=== PATIENT | male | born 1990 ===

== ENCOUNTER 2024-10-07 06:55 | Emergency (ER) | payer BC ==
[~2024-10-07] VITALS: Ht 175.2 cm; Wt 85.3 kg
[2024-10-07] MEDS ORDERED: SERTRALINE HYDR50 MG PO (07:34)
[2024-10-07] MEDS ORDERED: Thiamine 200 MG/2 ML VIAL IV ONE (07:45)
[2024-10-07] MEDS ORDERED: SODIUM CHLORIDE 0.9% 1,000 ML IV ONE (07:45)
[2024-10-07] MEDS ORDERED: LIBRIUM5 MG PO (07:55)
[2024-10-07] MEDS ORDERED: VITAMIN B-1100 M2 PO (07:55)
[2024-10-07 08:17] LABS: BASO % 0.6 % (0.0-1.0); EOS # 0.1 10*3/uL (0.0-0.4); EOS % 1.4 % (1.0-4.0); HEMATOCRIT 48.2 % (42.0-52.0); MEAN CELL VOLUME 88.9 fl (80.0-94.0); MEAN CORPUSCULAR HGB CONC 34.9 g/dl (33.0-37.0); MEAN PLATELET VOLUME 10.9 fl (9.6-12.3); MONO # 0.6 10*3/uL (0.1-1.0); MONO % 11.5 % (3.0-9.0); NEUT # 2.7 10*3/uL (2.3-7.9); NEUT % 54.8 % (47.0-73.0); PLATELET COUNT AUTOMATED 205 10*3/uL (130-400); RED BLOOD COUNT 5.42 10*6/uL (4.50-5.90); RED CELL DISTRI WIDTH 12.2 % (0-14.5); WHITE BLOOD COUNT 4.9 10*3/uL (4.8-10.8)
[2024-10-07 08:32] LABS: ACT PARTIAL THROMBO TIME 29.3 SECONDS (20.0-32.1)
[2024-10-07 08:42] LABS: ALKALINE PHOSPHATASE 78 U/L (46-116); BUN 7 mg/dl (9-23); CHLORIDE 101 mmol/L (98-107); CPK 219 U/L (34-171); LIPASE 39 U/L (12-53); POTASSIUM 3.7 mmol/L (3.4-5.1); SGPT/ALT 54 U/L (5-49); TOTAL PROTEIN 7.5 gm/dL (6.0-8.0)
[2024-10-07 08:46] LABS: ETHYL ALCOHOL < 3.0 mg/dl (<3)
[2024-10-07 08:47] LABS: BILIRUBIN Negative (Negative); BLOOD Negative (Negative); CLARITY Clear (Clear); COLOR Yellow (Yellow); GLUCOSE Negative (Negative); KETONE Negative (Negative); LEUKO ESTERASE Negative (Negative); NITRITE Negative (Negative); SPECIFIC GRAVITY <= 1.005 (1.001-1.030); UROBILINOGEN 0.2 E.U./dl (0.0-1.0)
[2024-10-07 08:52] LABS: URINE AMPHETAMINES Negative (1000ng/ml); URINE BARBITURATES Negative (200ng/ml); URINE BENZODIAZEPINES Negative (200ng/ml); URINE CANNABINOIDS (THC) Negative (50ng/ml); URINE COCAINE Negative (300ng/ml); URINE METHADONE Negative (300ng/ml); URINE OPIATES Negative (300ng/ml); URINE PHENCYCLIDINE Negative (25ng/ml)
[2024-10-07 09:30] LABS: RBC 0-2 rbc/hpf (0-2); WBC 0-2 wbc/hpf (0-5)
== END 2024-10-07 09:54 | disposition home or self-care (01) ==
LOC: ED 06:55
PROVIDERS: Emergency Medicine
DX: S09.8XXA Other specified injuries of head, initial encounter (principal); F10.239 Alcohol dependence with withdrawal, unspecified; R55 Syncope and collapse; H53.8 Other visual disturbances; Z79.899 Other long term (current) drug therapy; Y90.9 Presence of alcohol in blood, level not specified; W18.39XA Other fall on same level, initial encounter; Y93.89 Activity, other specified; Y92.89 Other specified places as the place of occurrence of the external cause; Y99.8 Other external cause status